=== PATIENT | male | born 1950 | race Two or more races ===

== ENCOUNTER 2022-07-08 13:33 | Outpatient (CLI) | payer SELFPAY | END 2022-07-08 13:34 | disposition home or self-care (01) | LOC: NFLDREF 07-10 16:26 | PROVIDERS: Visit Provider Registered Nurse | DX: R10.9 Unspecified abdominal pain (principal); N39.0 Urinary tract infection, site not specified; R79.89 Other specified abnormal findings of blood chemistry | CPT/HCPCS: 87086 ==